=== PATIENT | female | born 1995 | race African-American/Black ===

== ENCOUNTER 2017-10-26 22:00 | Emergency (ER) | payer SELFPAY ==
[~2017-10-26] VITALS: Ht 165.1 cm; Wt 73.0 kg
[2017-10-26] MEDS ORDERED: SODIUM CHLORIDE 0.9% 1,000 ML IV ONE (22:12)
[2017-10-26 23:01] LABS: HEMATOCRIT 38.4 % (36.0-48.0); HEMOGLOBIN 12.8 g/dL (12.0-16.0); MEAN CORPUSCULAR HEMOGLOBIN 28.7 pg (28.0-32.0); MEAN CORPUSCULAR VOLUME 85.9 fL (81.0-99.0); PLATELET 263 x1000/uL (130-400); RED BLOOD CELL COUNT 4.46 mill/uL (4.2-5.4); RED CELL DISTRIBUTION WIDTH 13.6 % (11.6-14.6)
[2017-10-26 23:06] LABS: CHLORIDE 105 mEq/L (98-107)
[2017-10-26 23:09] LABS: ETHANOL BLOOD < 10 mg/dL
[2017-10-27] MEDS ORDERED: SODIUM CHLORIDE 0.9% 1,000 ML IV ONE (00:16)
[2017-10-27 00:55] LABS: *BARBITURATES SCREEN URINE NEGATIVE (NEGATIVE); *BENZODIAZEPINES SCREEN URINE NEGATIVE (NEGATIVE); *COCAINE SCREEN URINE NEGATIVE (NEGATIVE); METHADONE URINE SCREEN NEGATIVE (NEGATIVE)
[2017-10-27 00:56] LABS: OPIATES URINE SCREEN NEGATIVE (NEGATIVE); PHENCYCLIDINE URINE SCREEN NEGATIVE (NEGATIVE)
[2017-10-27 01:24] LABS: *AMPHETAMINES SCREEN URINE PRESUMTIVE POSITIVE (NEGATIVE); CANNABINOID URINE SCREEN PRESUMTIVE POSITIVE (NEGATIVE)
[2017-10-27] MEDS ORDERED: DEXT 5%/0.9% NACL 1,000 ML IV ONE (02:00)
[2017-10-27 11:06] VITALS: BP 126/94
== END 2017-10-27 11:10 | disposition home or self-care (01) ==
LOC: ER 22:07
DX: T43.621A Poisoning by amphetamines, accidental (unintentional), initial encounter (principal)
CPT/HCPCS: 36415; 80048; 80305; 80307; 80329; 85027; 96360; 96361; 99285; G0482; J7030; X7700; J7042

== ENCOUNTER 2022-10-22 04:26 | Emergency (ER) | payer MEDICAID, OTHER ==
[~2022-10-22] VITALS: Ht 170.2 cm; Wt 95.0 kg
[2022-10-22 04:29] VITALS: O2SAT 100
[2022-10-22 07:30] LABS: BASOPHILS % 0.5 % (0.0-2.0); EOSINOPHILS % 0.5 % (0.0-5.0); HEMATOCRIT. 41.5 % (36.0-48.0); HEMOGLOBIN. 13.7 g/dL (12.0-16.0); LYMPHOCYTES % 19.7 % (20.0-50.0); MEAN CORPUSCULAR HEMOGLOBIN 27.8 pg (28.0-32.0); MEAN CORPUSCULAR HGB CONC 33.1 g/dL (31.0-37.0); MEAN CORPUSCULAR VOLUME 84.2 fL (81.0-99.0); MEAN PLATELET VOLUME 8.6 fl (7.4-10.4); MONOCYTES % 9.3 % (2.0-8.0); PLATELET 311 x1000/uL (130-400); RED BLOOD CELL COUNT 4.93 mill/uL (4.2-5.4); RED CELL DISTRIBUTION WIDTH 12.7 % (11.6-14.6); WHITE BLOOD COUNT 10.5 x1000/uL (4.5-11.0)
[2022-10-22 07:41] LABS: HCG SCREEN NEGATIVE
[2022-10-22 07:43] LABS: CHLORIDE 107 mEq/L (98-107); INDEX HEMOLYSI 1 (1-3); INDEX ICTERIC 1 (1-4); INDEX LIPEMIC 1 (1-3); POTASSIUM 3.5 mEq/L (3.5-5.1); SODIUM 136 mEq/L (136-145)
[2022-10-22 07:53] LABS: ALANINE AMINOTRANSFERASE 62 IU/L (13-61); ALBUMIN 4.1 g/dL (3.4-5.0); ASPARTATE AMINOTRANSFERASE 47 IU/L (15-37); CALCIUM 8.8 mg/dL (8.5-10.1); CARBON DIOXIDE 23 mEq/L (21-32); CREATININE 0.9 mg/dL (0.6-1.3); ETHANOL BLOOD < 10 mg/dL (-10); GLUCOSE 100 mg/dL (70-105); PROTEIN TOTAL 8.3 g/dL (6.0-8.3); UREA NITROGEN BLOOD 10 mg/dL (7-21)
[2022-10-22 10:21] VITALS: BP 128/68; PULSE 105; RESP 18; TEMP 98.1
[2022-10-22] MEDS ORDERED: RISPERIDONE 1MG TABLET PO SCH (11:00)
== END 2022-10-22 12:41 | disposition home or self-care (01) ==
LOC: ER 04:26
DX: F19.10 Other psychoactive substance abuse, uncomplicated (principal); R51.9 Headache, unspecified; F17.200 Nicotine dependence, unspecified, uncomplicated; F15.10 Other stimulant abuse, uncomplicated
CPT/HCPCS: 36415; 80053; 80320; 84703; 85025; 99284; G0480